=== PATIENT | female | born 1935 | race Caucasian/White ===

== ENCOUNTER 2018-05-14 11:00 | Emergency (ER) | payer OTHER ==
[2018-05-14] MEDS: MECLIZINE 12.5 MG TAB PO (12:26)
[2018-05-14 12:32] LABS: ADD MAN DIFF? NO; BASOPHIL # 0.1 10^3/ul (0.0-0.1); BASOPHILS % 0.8 % (0.0-2.0); EOSINOPHILS # 0.3 10^3/ul (0.0-0.5); EOSINOPHILS % 4.2 % (0.0-7.0); HEMATOCRIT 42.8 % (37.0-47.0); HEMOGLOBIN 13.7 g/dl (12.0-16.0); LYMPHOCYTES # 2.2 10^3/ul (0.8-2.9); LYMPHOCYTES % 35.7 % (15.0-51.0); MEAN CORPUSCULAR HEMOGLOBIN 27.9 pg (29.0-33.0); MEAN CORPUSCULAR VOLUME 87.2 fl (82.0-101.0); MEAN PLATELET VOLUME 9.9 fl (7.4-10.4); MONOCYTE # 0.7 10^3/ul (0.3-0.9); MONOCYTES % 10.9 % (0.0-11.0); NEUTROPHILS % 48.2 % (39.0-77.0); PLATELET COUNT 239 10^3/UL (140-415); RED BLOOD COUNT 4.91 10^6/ul (4.20-5.40); RED CELL DISTRIBUTION WIDTH 12.9 % (11.5-14.5)
[2018-05-14 12:32] LABS: WHITE BLOOD COUNT 6.3 10^3/ul (4.8-10.8)
[2018-05-14 12:38] LABS: ALANINE AMINOTRANSFERASE 19 IU/L (13-69); ALBUMIN 4.3 g/dl (3.3-4.9); ALBUMIN/GLOBULIN RATIO 1.13; ALKALINE PHOSPHATASE 72 IU/L (42-121); ANION GAP 13 (5-13); ASPARTATE AMINO TRANSFERASE 27 IU/L (15-46); BILIRUBIN,INDIRECT 0.6 mg/dl (0-1.1); BILIRUBIN,TOTAL 0.6 mg/dl (0.2-1.3); BLOOD UREA NITROGEN 28 mg/dl (7-20); CALCIUM 9.6 mg/dl (8.4-10.2); CARBON DIOXIDE 26 mmol/L (21-31); CHLORIDE 102 mmol/L (97-110); GLUCOSE 99 mg/dl (70-220); POTASSIUM 4.8 mmol/L (3.5-5.1); SODIUM 141 mmol/L (135-144); TOTAL PROTEIN 8.1 g/dl (6.1-8.1)
[2018-05-14 12:49] LABS: TROPONIN-I < 0.012 ng/ml (0.000-0.120)
[2018-05-14] MEDS ORDERED: ACETAMINOPHEN 325 MG TAB PO (14:00)
[2018-05-14] MEDS ORDERED: ONDANSETRON 4 MG INJ IV (14:00)
== END 2018-05-14 14:38 | disposition home or self-care (01) ==
LOC: E/R 11:00
DX: R42 Dizziness and giddiness (principal); R40.2142 Coma scale, eyes open, spontaneous, at arrival to emergency department; R40.2362 Coma scale, best motor response, obeys commands, at arrival to emergency department; R40.2252 Coma scale, best verbal response, oriented, at arrival to emergency department; I10 Essential (primary) hypertension
CPT/HCPCS: 36415; 70450; 71045; 80053; 84484; 85025; 93005; 99285-25